=== PATIENT | male | born 1985 | race Caucasian/White ===

== ENCOUNTER 2024-07-29 07:35 | Emergency (ER) | payer MEDICAID, OTHER ==
[~2024-07-29] VITALS: Ht 170.2 cm; Wt 93.0 kg
[2024-07-29] MEDS ORDERED: METOCLOPRAMIDE HCL 10 MG/2 ML VIAL ONE (08:06)
[2024-07-29] MEDS ORDERED: KETOROLAC TROMETHAMINE 30 MG INJ ONE (08:06)
[2024-07-29] MEDS: METOCLOPRAMIDE HCL 10 MG/2 ML VIAL IV ONE (08:07)
[2024-07-29] MEDS: KETOROLAC TROMETHAMINE 30 MG INJ IVP ONE (08:08)
[2024-07-29 08:09] LABS: BASOPHILS % (AUTO) 0.3 % (0.0-2.0); EOSINOPHILS # (AUTO) 0.1 K/uL (0.0-0.7); EOSINOPHILS % (AUTO) 0.8 % (0.0-7.0); HEMOGLOBIN 14.7 g/dL (12.5-16.3); LYMPHOCYTES # (AUTO) 2.1 K/uL (0.8-4.8); LYMPHOCYTES % (AUTO) 31.5 % (20.5-51.5); MEAN CORPUSCULAR HEMOGLOBIN 30.5 uug (23.8-33.4); MEAN CORPUSCULAR HGB CONC 34 g/dL (32.5-36.3); MEAN CORPUSCULAR VOLUME 89.3 fL (73.0-96.2); MONOCYTES # (AUTO) 0.4 K/uL (0.1-1.30); MONOCYTES % (AUTO) 5.9 % (0.0-11.0); NEUTROPHILS # (AUTO) 4.2 K/uL (1.8-8.9); NEUTROPHILS % (AUTO) 61.5 % (38.5-71.5); PLATELET COUNT (AUTO) 251 K/uL (152-348); RED BLOOD CELL COUNT(AUTO) 4.82 MIL/uL (4.06-5.63); RED CELL DISTRIBUTION WIDTH 13.9 % (12.1-16.2); WHITE BLOOD COUNT (AUTO) 6.8 K/uL (3.6-10.2)
[2024-07-29 08:10] LABS: DIFFERENTIAL COMMENT 1
[2024-07-29 08:18] LABS: CALCIUM 9.3 mg/dL (8.5-10.1); CREATININE 0.9 mg/dL (0.6-1.3); POTASSIUM 3.7 mmol/L (3.5-5.1)
[2024-07-29 08:23] LABS: ALBUMIN 3.9 g/dL (3.4-5.0); BILIRUBIN,DIRECT 0.2 mg/dL (0.0-0.2); BILIRUBIN,TOTAL 0.9 mg/dL (0.2-1.0); TOTAL PROTEIN, SERUM 6.8 g/dL (6.4-8.2)
[2024-07-29] MEDS: IV NORMAL SALINE 1000 ML BAG IV ONE (08:30)
[2024-07-29] MEDS ORDERED: HYDR-3980 PO (10:26)
[2024-07-29] MEDS ORDERED: METO5TAB87 PO (10:26)
[2024-07-29 11:16] VITALS: BP 112/69; TEMP 97.8; O2SAT 99
== END 2024-07-29 11:17 | disposition home or self-care (01) ==
LOC: ER 07:35
DX: K80.50 Calculus of bile duct without cholangitis or cholecystitis without obstruction (principal); F31.9 Bipolar disorder, unspecified
CPT/HCPCS: 99285; 96374; 76705; 96361; 96375; 80076; 80048; 83690; 85025; 36415; J1885; J2765; J7040; A4606; A4663

== ENCOUNTER 2024-11-21 10:35 | Emergency (ER) | payer MEDICAID ==
[~2024-11-21] VITALS: Ht 172.7 cm; Wt 84.4 kg
[~2024-11-21 10:35] MED LIST: METO5TAB87 PO
[2024-11-21] MEDS ORDERED: CEFTRIAXONE /D5W 50ML IVPB **ER PYXIS IV ONE (11:17)
[2024-11-21 11:18] LABS: PLATELET COUNT (AUTO) 276 K/uL (152-348); RED BLOOD CELL COUNT(AUTO) 5.38 MIL/uL (4.06-5.63); RED CELL DISTRIBUTION WIDTH 13.1 % (12.1-16.2); WHITE BLOOD COUNT (AUTO) 9.0 K/uL (3.6-10.2)
[2024-11-21 11:25] LABS: CREATININE 1.1 mg/dL (0.6-1.3); SODIUM SERUM 139.0 mmol/L (136-145); UREA NITROGEN, BLOOD 16.0 mg/dL (7-18)
[2024-11-21] MEDS: IV NORMAL SALINE 1000 ML BAG IV ONE (11:25)
[2024-11-21] MEDS: CEFTRIAXONE 1 G in IV DEXTROSE 5% 50 ML IV ONE (11:25)
[2024-11-21 11:31] LABS: ASPARTATE AMINOTRANSFERASE 23.0 U/L (15-37); TOTAL PROTEIN, SERUM 7.5 g/dL (6.4-8.2)
[2024-11-21 11:38] LABS: CREATINE KINASE, TOTAL 130 U/L (39-308)
[2024-11-21] MEDS ORDERED: METRONIDAZOLE 500 MG/NS 100ML 100 ML IV ONE (11:48)
[2024-11-21] MEDS: METRONIDAZOLE 500 MG/NS 100ML 100 ML IV ONE (12:00)
[2024-11-21 12:26] LABS: *BILIRUBIN,URIN NEGATIVE (NEGATIVE); *BLOOD, URINE NEGATIVE (NEGATIVE); *CLARITY,URINE CLEAR (CLEAR); *COLOR,URINE YELLOW (YELLOW); *KETONES,URINE 2+ (NEGATIVE); *PROTEIN,URINE NEGATIVE (NEGATIVE); *UROBILINOGEN,URINE 0.2 E.U./dl (NORMAL); LEUKOCYTE ESTERASE ,URINE NEGATIVE (NEGATIVE); NITRITE, URINE NEGATIVE (NEGATIVE); UGLUCOSE NEGATIVE (NEGATIVE)
[2024-11-21 14:09] VITALS: BP 120/79; O2SAT 100
== END 2024-11-21 14:10 | disposition home or self-care (01) ==
LOC: ER 10:35
DX: E86.0 Dehydration (principal); R11.2 Nausea with vomiting, unspecified; R19.7 Diarrhea, unspecified; R10.13 Epigastric pain; R07.9 Chest pain, unspecified; F17.210 Nicotine dependence, cigarettes, uncomplicated; F31.9 Bipolar disorder, unspecified; Z90.49 Acquired absence of other specified parts of digestive tract; Z60.2 Problems related to living alone
CPT/HCPCS: 99285; 74176; 96365; 71045; 96366; 80076; 80048; 81001; 82550; 83690; 85025; 84145; 85730; 87040 ×2; 87086; 84484; 36415; 93005; 96368; 83605; J0696; J3490; J7040 ×2; A4606; A4663